=== PATIENT | male | born 1985 | race Caucasian/White ===

== ENCOUNTER 2016-10-30 14:55 | Emergency (ER) | payer OTHER ==
--- NOTE | 2016-10-30 15:29 | UC ---
Throat Pain/Nasal Mani HPI - HPI Summary HPI Summary: patient is here for a sinus and ear pain. he has had increase frontal sinus pressure and ear pain, lymphadenopathy noted behind the right ear. patient also states he has been having intermittent chest pressure that radiates to the back frequenty. sometimes after meals, sometimes whenever, last episode was yesterday. has been having these kind f pains since a large weight gain over the past few years, he had a traumatic even resulting in anxiety, concussion, which he is followed by the concussion clinic in [place]. - History of Current Complaint Stated Complaint: COUGH/CONGESTION Time Seen by Provider: 10/30/16 15:15 Hx Obtained From: Patient Onset/Duration: Sudden Onset, Lasting Days Severity: Moderate Cough: None Associated Signs & Symptoms: Positive: Dysphagia, Sinus Discomfort, Nasal Discharge - Allergies/Home Medications Allergies/Adverse Reactions: Allergies Allergy/AdvReac Type Severity Reaction Status Date / Time No Known Allergies Allergy Verified 10/30/16 15:22 Home Medications: Home Medications Pseudoephedrine HCL ER TAB* [Sudafed 12 Hour*] 120 mg PO BID PRN 10/30/16 [ History Confirmed 10/30/16] PMH/Surg Hx/FS Hx/Imm Hx Previously Healthy: Yes - Surgical History Surgical History: Yes Surgery Procedure, Year, and Place: finger - Family History Known Family History: Positive: Cardiac Disease, Hypertension Negative: Diabetes - Social History Alcohol Use: Rare Substance Use Type: None Smoking Status (MU): Former Smoker Type: Cigarettes Have You Smoked in the Last Year: No When Did the Patient Quit Smoking/Using Tobacco: occasional social use - Immunization History Most Recent Influenza Vaccination: 2012 Review of Systems Constitutional: Fatigue Skin: Negative Eyes: Negative ENT: Sore Throat, Ear Ache, Nasal Discharge Respiratory: Shortness Of Breath, Cough Cardiovascular: Chest Pain Gastrointestinal: Negative Genitourinary: Negative Motor: Negative Neurovascular: Negative Musculoskeletal: Negative Neurological: Negative Psychological: Negative All Other Systems Reviewed And Are Negative: Yes Physical Exam Triage Information Reviewed: Yes Appearance: Well-Nourished, Ill-Appearing, Pain Distress Vital Signs Reviewed: Yes Eye Exam: Normal Eyes: Positive: Conjunctiva Clear ENT Exam: Normal ENT: Positive: Pharyngeal erythema, TM bulging, TM dull, TM red - right, Tonsillar swelling Dental Exam: Normal Neck exam: Normal Neck: Positive: No Lymphadenopathy - right cervical and behind right ear Respiratory Exam: Normal Respiratory: Positive: Chest non-tender, Lungs clear, Normal breath sounds Cardiovascular Exam: Normal Cardiovascular: Positive: RRR, No Murmur, Pulses Normal Abdominal Exam: Normal Abdomen Description: Positive: Other: - tender Bowel Sounds: Positive: Present Musculoskeletal Exam: Normal Musculoskeletal: Positive: Strength Intact, ROM Intact, No Edema Neurological Exam: Normal Neurological: Positive: Alert, Muscle Tone Normal Psychological Exam: Normal Skin Exam: Normal Throat Pain/Nasal Course/Dx - Course Course Of Treatment: hx obtained, exam performed, meds reviewed, EKG was abnormal, reviewed by Dr Strickland, recommended patient follow up in the ER. patient is willing to go for further eval at the ER. unabel to get an automatic or manual BP. - Differential Dx/Diagnosis Differential Diagnosis/HQI/PQRI: Laryngitis, Otitis Media, Pharyngitis, Sinusitis, Other - CHEST PAIN CAD angina Provider Diagnoses: otitis media, right. Chest pain. anxiety - Physician Notification/Consults Discussed Patient Care With: Luisana Vasquez Instructed by Provider To: MD Will See In ED Discharge - Discharge Plan Condition: Stable Disposition: AGAINST MEDICAL ADVICE Prescriptions: Amoxicillin/Clavulanate TAB* [Augmentin TAB 875*] 875 mg PO BID #20 tab Patient Education Materials: Otitis Media (ED) Referrals: No Primary Care Phys,NOPCP [Primary Care Provider] - Additional Instructions: 1. take the medication as prescribed.
[2016-10-30 16:07] VITALS: BP 174/100
== END 2016-10-30 16:06 | disposition left against medical advice (07) ==
LOC: UCCORT 14:55
DX: H66.91 Otitis media, unspecified, right ear (principal); R07.89 Other chest pain; F41.9 Anxiety disorder, unspecified; Z87.891 Personal history of nicotine dependence
CPT/HCPCS: 93005; 99212; G0463

== ENCOUNTER 2017-04-21 07:31 | Emergency (ER) | payer OTHER ==
--- NOTE | 2017-04-21 08:05 | UC ---
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 gi upet last week with diarrhea and fever. now coough is worse, feels like he will black out at times when coughing chest cortez . sob at times. " Here w/ his . no recent fever. myalgias resolved. denies asthma -took sudafed yesterday w/o much relief. -rarely takes NSAIDs -when inquiring about BP, states he has always had high BP even in high school. DBP has always been in the 90s. Dad w/ HTN and on many meds. -doesnt have a PCP. doesnt get to the Drs very often. -h/o 2 significant work injuries including concussion, eanxiety, etc. concussion Dr started him on propranolol BID for anxiety he reports, not BP, but it wasnt effective and he stopped it. - History of Current Complaint Chief Complaint: UCRespiratory Stated Complaint: COUGH,CHEST CONGESTION Time Seen by Provider: 04/21/17 07:42 - Allergies/Home Medications Allergies/Adverse Reactions: Allergies Allergy/AdvReac Type Severity Reaction Status Date / Time No Known Allergies Allergy Verified 04/21/17 07:37 PMH/Surg Hx/FS Hx/Imm Hx Previously Healthy: Yes Cardiovascular History: Hypertension - untreated Neurological History: Other - concussion, work injury Other Neurological History: concussion Psychological History: Anxiety - Surgical History Surgical History: Yes Surgery Procedure, Year, and Place: finger - Family History Known Family History: Positive: Cardiac Disease, Hypertension Negative: Diabetes, Respiratory Disease - no asthma - Social History Alcohol Use: Rare Substance Use Type: None Smoking Status (MU): Former Smoker Type: Cigarettes Have You Smoked in the Last Year: No When Did the Patient Quit Smoking/Using Tobacco: occasional social use - Immunization History Most Recent Influenza Vaccination: no Review of Systems Constitutional: Fatigue Skin: Negative Eyes: Negative ENT: Sore Throat Respiratory: Cough Cardiovascular: Negative Gastrointestinal: Negative Genitourinary: Negative Motor: Negative Neurovascular: Negative Musculoskeletal: Negative Neurological: Negative Psychological: Negative Is Patient Immunocompromised?: No All Other Systems Reviewed And Are Negative: Yes Physical Exam Triage Information Reviewed: Yes Appearance: Well-Appearing, Ill-Appearing - mild. speaks full sentences w/o cough. cough is infrequent but moderate when he does cough Vital Signs: Initial Vital Signs Temp 97.9 F 04/21/17 07:39 Pulse 108 12/02/17 07:39 Resp 24 04/21/17 07:39 BP 156/101 04/21/17 07:39 Pulse Ox 96 04/21/17 07:39 Vital Signs Reviewed: Yes Eye Exam: Normal ENT: Positive: Pharynx normal, TMs normal. Negative: Pharyngeal erythema, Nasal congestion, TM bulging, Tonsillar swelling, Tonsillar exudate, Hoarse voice, Sinus tenderness Dental Exam: Normal Neck exam: Normal Neck: Positive: Supple, Nontender, No Lymphadenopathy Respiratory: Positive: Chest non-tender, Lungs clear, No respiratory distress, No accessory muscle use, Decreased breath sounds. Negative: Crackles, Rhonchi, Stridor, Wheezing Cardiovascular Exam: Normal Cardiovascular: Positive: RRR, No Murmur, Pulses Normal Abdomen Description: Positive: Nontender, Soft Musculoskeletal Exam: Normal Neurological Exam: Normal Psychological Exam: Normal Skin Exam: Normal UC Diagnostic Evaluation - Laboratory O2 Sat by Pulse Oximetry: 96 Respiratory Course/Dx - Course Course Of Treatment: No s/s of bacterial infection. Lungs with diminished breath sounds. treat w/ albuterol and inhaled steroid. discussed risks of oral streoids and they prefer to avoid, which I agree with. risks outweigh benefits at this time. -BP 158/101 & then 138/100 on rpt manual. 2 high readings w/ h/o elevated BP since high school w/ diastolic consistnetly > 90. will start lisinipril. disc risks and beenfits. List of PCPs to establish with are given and should do w/in the month, as soon as possible. They understood me well and are very agreeable with this plan. - Differential Dx/Diagnosis Differential Diagnosis/HQI/PQRI: Asthma, Bronchitis, Lower Resp Infection, Sinusitis Provider Diagnoses: Bronchitis, HTN Discharge - Discharge Plan Condition: Stable Disposition: HOME Prescriptions: Albuterol HFA INHALER* [Ventolin HFA Inhaler*] 2 puff INH Q4H PRN #1 mdi PRN Reason: Cough Fluticasone-Salmeterol 100-50* [Advair Diskus 100-50*] 1 puff INH BID #1 diskus Lisinopril 10 mg PO DAILY #30 tab Patient Education Materials: Acute Bronchitis (ED), Hypertension (ED) Referrals: No Primary Care Phys,NOPCP [Primary Care Provider] - Additional Instructions: There are no signs of any bacterial infection and therefore antibiotics are not indicated. the albuterol and advair discus will help improve your symptoms. We discussed possible oral staroids, however, I think the side effects outweigh the benefits of the medicine for you at this time. -We also discussed the importance of blood pressure control. I have started you on a medicine that should be taken daily. You must make an appt soon as you are only getting 30 days of meds from us and refills cannot be granted. Watch for any signs of lip or tongues swelling with this and stop immediately if you do. A small percentage of patients can develop a dry annoying cough from this medicine that resolves with stopping the medication. -avoid all cold medications that have decongestants or sudafed type products in them because of the high blood pressure. -Avoid all non-steroidal anti-inflammatories as they can raise blood pressure. -decrease salt in your diet. Weight loss would be very beneficial.
[2017-04-21 08:13] VITALS: BP 138/100
== END 2017-04-21 08:30 | disposition home or self-care (01) ==
LOC: UCCORT 07:31
DX: J40 Bronchitis, not specified as acute or chronic (principal); I10 Essential (primary) hypertension; F41.9 Anxiety disorder, unspecified; Z72.0 Tobacco use
CPT/HCPCS: 99212; G0463

== ENCOUNTER 2019-07-25 10:25 | Emergency (ER) | payer OTHER ==
--- NOTE | 2019-07-25 11:59 | UC ---
Knee Pain HPI - HPI Summary HPI Summary: 34 yo male twisted right knee 3 or 4 days ago at work right lat knee pain sharp at times swollen does not buckle - History of Current Complaint Stated Complaint: RIGHT KNEE INJURY (WC) Time Seen by Provider: 07/25/19 11:53 Hx Obtained From: Patient Onset/Duration: Sudden Onset, Lasting Days Severity Initially: Moderate Severity Currently: Mild Pain Intensity: 4 - worse at times Pain Scale Used: 0-10 Numeric Character: Sharp Aggravating Factor(s): Movement, Weight Bearing Alleviating Factor(s): Rest Associated Signs And Symptoms: Positive: Swelling Able to Bear Weight: Yes Legs: 1 - pain here - Allergies/Home Medications Allergies/Adverse Reactions: Allergies Allergy/AdvReac Type Severity Reaction Status Date / Time No Known Allergies Allergy Verified 07/25/19 11:58 Home Medications: Home Medications Albuterol HFA INHALER* [Ventolin HFA Inhaler*] 2 puff INH Q4H PRN #1 mdi [Rx Confirmed 07/25/19] Fluticasone-Salmeterol 100-50* [Advair Diskus 100-50*] 1 puff INH BID #1 diskus 04/21/17 [Rx Confirmed 07/25/19] lisinopriL [Lisinopril] 10 mg PO DAILY #30 tab 04/21/17 [Rx Confirmed 07/25/19] PMH/Surg Hx/FS Hx/Imm Hx Previously Healthy: Yes Cardiovascular History: Hypertension - Surgical History Surgical History: Yes Surgery Procedure, Year, and Place: finger - Family History Known Family History: Positive: Cardiac Disease, Hypertension Negative: Diabetes, Respiratory Disease - no asthma - Social History Alcohol Use: Rare Substance Use Type: None Smoking Status (MU): Former Smoker Type: Cigarettes Have You Smoked in the Last Year: No When Did the Patient Quit Smoking/Using Tobacco: occasional social use - Immunization History Most Recent Influenza Vaccination: no Review of Systems All Other Systems Reviewed And Are Negative: Yes Constitutional: Positive: Negative Skin: Positive: Negative Eyes: Positive: Negative ENT: Positive: Negative Respiratory: Positive: Negative Cardiovascular: Positive: Negative Gastrointestinal: Positive: Negative Genitourinary: Positive: Negative Motor: Positive: Negative Musculoskeletal: Positive: Arthralgia Neurological/Mental Status: Positive: Negative Psychological: Positive: Negative Physical Exam Triage Information Reviewed: Yes Appearance: Well-Appearing Vital Signs Reviewed: Yes Eyes: Positive: Conjunctiva Clear ENT: Positive: Hearing grossly normal. Negative: Nasal congestion, Nasal drainage, Trismus, Muffled voice, Hoarse voice Neck: Positive: Supple, Nontender Respiratory: Positive: Lungs clear, Normal breath sounds, No respiratory distress, No accessory muscle use Cardiovascular: Positive: RRR, No Murmur Musculoskeletal: Positive: ROM Intact, No Edema, Other: - antalgic gait/tender lat joint line of right knee Neurological: Positive: Alert Psychological Exam: Normal Skin Exam: Normal Diagnostics - Radiology No standard instances Radiology Interpretation Completed By: Radiologist Summary of Radiographic Findings: neg for fx/effusion Knee Pain Course/Dx - Course Course Of Treatment: I informed patient that I was concerned he has a torn lateral meniscus - Differential Dx/Diagnosis Provider Diagnosis: Right knee injury Discharge ED - Sign-Out/Discharge Documenting (check all that apply): Patient Departure All imaging exams completed and their final reports reviewed: Yes - Discharge Plan Condition: Stable Disposition: HOME Patient Education Materials: Knee Pain (ED) Forms: *Work Release Referrals: No Primary Care Phys,NOPCP [Medical Doctor] - Young Huitron MD [Medical Doctor] - As Soon As Possible Additional Instructions: rest elevate ice aleve 2 pill twice daily for pain - Billing Disposition and Condition Condition: STABLE Disposition: Home
[2019-07-25 12:31] VITALS: BP 134/77
== END 2019-07-25 12:53 | disposition home or self-care (01) ==
LOC: UCCORT 10:25
DX: S89.91XA Unspecified injury of right lower leg, initial encounter (principal); I10 Essential (primary) hypertension; Z87.891 Personal history of nicotine dependence; Z79.899 Other long term (current) drug therapy; X50.1XXA Overexertion from prolonged static or awkward postures, initial encounter; Y92.9 Unspecified place or not applicable
CPT/HCPCS: 99211; G0463